=== PATIENT | male | born 1970 | race Hispanic/Latino ===

== ENCOUNTER 2023-03-14 16:32 | Emergency (ER) | payer BC ==
--- OUTSIDE RECORDS SUMMARY | 2023-03-14 16:38 | XMS REPORT | Continuity of Care Document ---
Author Name Unknown Address [address] [facility] [address] [place] [address] [facility] thconnect Address [address] [facility] [place]. [address] [place] [address] Care Team Providers Care Life Skills Instructor Name Role Phone PCP, PATIENT DOES NOT HAVE A Primary Care Physic tiarra Unavailable PANCHO POTTER Attending Clinician Unavailable Provider, [facility] Attending Clinician Unavailable Ariana Oconnell MD Attending Clinician [phone] Anastasiia Benton Attending Clinician [phone] Doctor Unassigned, Elton Attending Clinician U navailable Payers Payer Name Policy Type Policy Number Effective Date Expirati on Date Source [facility] PPO/POS [id number] 2016 00:00:00 Problems Condition Name Condition Details Condition Category Status Onset Date Resolution Date Last Treatment Date Treating Clinician Comments Source No known active problems No known active problems Disease [facility] Allergies, Adverse Reactions, Alerts Allergy Name Allergy Type Status Severity Reaction(s) Onset Date Inactive Date Treating Clinician Comments Source Penicill ins Propensi ty to adverse reaction s Active Unknown - See comments 2020-04 0-05 00:00: 00 [facility] PENICILL INS Drug Class Active Unknown-Cmnt 2020-04 0-05 00:00: 00 [facility] NO KNOWN ALLERGIE S Drug Class Active [facility] Social History Social Habit Start Date Stop Date Quantity Comments Source History SDOH Alcohol Frequency [facility] History SDOH Alcohol Std Drinks [facility] History SDOH Alcohol Binge [facility] Exposure to SARS-CoV-2 (event) Not sure [facility] Alcohol intake 2021-01-06 00:00:00 2021-01-06 00:00:00 Current drinker of alcohol (finding) [facility] Tobacco use and exposure 2016-08-10 00:00:00 2016-08-10 00:00:00 Never used [facility] Alcohol Comment 2016-08-10 00:00:00 2016-08-10 00:00:00 occasional [facility] Sex Ass[birth year] At 1970 00:00:00 1970 00:00:00 [facility] Smoking Status Start Date Stop Date Source Never smoker [facility] Medications Ordered Medication Name Filled Medication Name Start Date Stop Date Current Medication? Ordering Clinician Indication Dosage Frequency Signature (SIG) Comments Components Source codeine-gua ifenesin 10-100 mg/5 mL oral solution 2020-04 00:00: 00 01-16 04:59 :00 No 10mL Take 10 mL by mouth every 6 (six) hours as needed for Cough for up to 7 days. Indication s: cough [facility] canaglifloz in-metformi n (INVOKAMET XR) 150-1,000 mg TBph 2020-04 09:04: 52 Yes Take by mouth 2 (two) times daily. [facility] lisinopril 2.5 mg tablet 2020-04 09:04: 52 Yes 2.5mg Take 2.5 mg by mouth daily. [facility] canaglifloz in-metformi n (INVOKAMET XR) 150-1,000 mg TBph 2020-04 0 09:04: 52 Yes Take by mouth 2 (two) times daily. [facility] lisinopril 2.5 mg tablet 2020-04 09:04: 52 Yes 2.5mg Take 2.5 mg by mouth daily. [facility] cetirizine (ZYRTEC) 10 mg tablet 2020-04 00:00: 00 Yes [id number] 10mg Take 1 tablet by mouth daily. [facility] fluticasone propionate 50 mcg/actuati on nasal spray 2020-04 0 00:00: 00 Yes [id number] 1{spray } Use 1 [place] in each nostril daily. [facility] azelastine 137 mcg (0.1 %) nasal spray 2020-04 0 00:00: 00 Yes [id number] 1{spray } Use 1 [place] in each nostril 2 (two) times daily. Use in each nostril as directed [facility] benzonatate 100 mg capsule 2020-04 0 00:00: 00 Yes [id number] 200mg Take 2 capsules by mouth 2 (two) times daily as needed for Cough. [facility] cetirizine (ZYRTEC) 10 mg tablet 2020-04 0 00:00: 00 Yes [id number] 10mg Take 1 tablet by mouth daily. [facility] fluticasone propionate 50 mcg/actuati on nasal spray 2020-04 0 00:00: 00 Yes [id number] 1{spray } Use 1 [place] in each nostril daily. [facility] azelastine 137 mcg (0.1 %) nasal spray 2020-04 0 00:00: 00 Yes [id number] 1{spray } Use 1 [place] in each nostril 2 (two) times daily. Use in each nostril as directed [facility] benzonatate 100 mg capsule 2020-04 0 00:00: 00 Yes [id number] 200mg Take 2 capsules by mouth 2 (two) times daily as needed for Cough. [facility] VASCEPA 1 gram capsule 12-25 00:00: 00 Yes [facility] VASCEPA 1 gram capsule 12-25 00:00: 00 Yes [facility] VICTOZA 3-VLADIMIR 0.6 mg/0.1 mL (18 mg/3 mL) injection 12-16 00:00: 00 Yes [facility] VICTOZA 3-VLADIMIR 0.6 mg/0.1 mL (18 mg/3 mL) injection 12-16 00:00: 00 Yes [facility] atorvastati n 10 mg tablet 12-15 00:00: 00 Yes [facility] atorvastati n 10 mg tablet 12-15 00:00: 00 Yes [facility] canaglifloz in-metformi n (INVOKAMET XR) 150-1,000 mg TBph 09-01 18:25: 05 Yes Take by mouth 2 (two) times daily. [facility] lisinopril 2.5 mg tablet 09-01 18:25: 05 Yes 2.5mg Take 2.5 mg by mouth daily. [facility] GEMFIBROZIL ORAL 09-01 18:25: 05 Yes Take by mouth 2 (two) times daily. [facility] canaglifloz in-metformi n (INVOKAMET XR) 150-1,000 mg TBph 09-01 18:25: 05 Yes Take by mouth 2 (two) times daily. [facility] lisinopril 2.5 mg tablet 09-01 18:25: 05 Yes 2.5mg Take 2.5 mg by mouth daily. [facility] GEMFIBROZIL ORAL 09-01 18:25: 05 Yes Take by mouth 2 (two) times daily. [facility] GEMFIBROZIL ORAL 09-01 18:25: 05 Yes Take by mouth 2 (two) times daily. [facility] GEMFIBROZIL ORAL 09-01 18:25: 05 Yes Take by mouth 2 (two) times daily. [facility] Insulin Detemir (LEVEMIR FLEXTOUCH) 100 unit/mL (3 mL) injection 09-01 00:00: 00 Yes [id number] 40U inject 40 Units under the skin daily. [facility] Insulin Detemir (LEVEMIR FLEXTOUCH) 100 unit/mL (3 mL) injection 09-01 00:00: 00 Yes [id number] 40U inject 40 Units under the skin daily. [facility] Insulin Detemir (LEVEMIR FLEXTOUCH) 100 unit/mL (3 mL) injection 09-01 00:00: 00 Yes [id number] 40U inject 40 Units under the skin daily. [facility] it[facility] Insulin Detemir (LEVEMIR FLEXTOUCH) 100 unit/mL (3 mL) injection 09-01 00:00: 00 Yes [id number] 40U inject 40 Units under the skin daily. [facility] it[facility] GUAIFENESIN /PSEUDOEPHE DRNE HCL (MUCINEX D ORAL) 2016-04 19:15: 46 Yes Take by mouth. [facility] GUAIFENESIN /PSEUDOEPHE DRNE HCL (MUCINEX D ORAL) 2016-04 19:15: 46 Yes Take by mouth. [facility] it[facility] GUAIFENESIN /PSEUDOEPHE DRNE HCL (MUCINEX D ORAL) 2016-04 19:15: 46 Yes Take by mouth. [facility] GUAIFENESIN /PSEUDOEPHE DRNE HCL (MUCINEX D ORAL) 2016-04 19:15: 46 Yes Take by mouth. [facility] BYDUREON 2 mg/0.65 mL injection 2016-04 00:00: 00 Yes [facility] it[facility] BYDUREON 2 mg/0.65 mL injection 2016-04 00:00: 00 Yes [facility] it[facility] BYDUREON 2 mg/0.65 mL injection 2016-04 00:00: 00 Yes [facility] BYDUREON 2 mg/0.65 mL injection 2016-04 00:00: 00 Yes [facility] it[facility] LEVEMIR FLEXTOUCH 100 unit/mL (3 mL) injection 2016-04 00:00: 00 Yes [facility] LEVEMIR FLEXTOUCH 100 unit/mL (3 mL) injection 2016-04 00:00: 00 Yes [facility] it[facility] LEVEMIR FLEXTOUCH 100 unit/mL (3 mL) injection 2016-04 00:00: 00 Yes [facility] [address] LEVEMIR FLEXTOUCH 100 unit/mL (3 mL) injection 2016-04 00:00: 00 Yes [facility] Vital Signs Vital Name Observation Time Observation Value Comments S adrianne Systolic blood pressure 2021-01-06 14:07:00 142 mm[Hg] [facility] Diastolic blood pressure 2021-01-06 14:07:00 85 mm[Hg] [facility] Heart rate 2021-01-06 14:02:00 94 /min [facility] Body temperature 2021-01-06 14:02:00 36.72 [facility] Respiratory rate 2021-01-06 14:02:00 16 /min [facility] Body height 2021-01-06 14:02:00 165.1 cm [facility] Body weight 2021-01-06 14:02:00 121.745 kg [facility] BMI 2021-01-06 14:02:00 44.66 kg/m2 [facility] Oxygen saturation in Arterial blood by Pulse oximetry 2021-01-06 14:02:00 96 /min [facility] Encounters Start Date/Time End Date/Time Encounter Type Admission Type Attending Clinicians Care Facility Care Department Encounter ID Source 2021-01-08 00:00:00 2021-01-08 00:00:00 [facility] [id number] [facility] 2021-01-06 08:57:57 2021-01-06 09:32:24 Urgent Care Ariana Oconnell Cathy [facility] [id number] [facility] 2021-01-06 09:00:00 2021-01-06 09:00:00 Outpatient R [facility] [id number] [facility] 2021-01-06 00:00:00 2021-01-06 00:00:00 Letter (Out) Doctor Unassigned, Elton [facility] [id number] [facility] 2021-01-06 00:00:00 2021-01-06 00:00:00 Letter (Out) Doctor Unassigned, Elton [facility] [id number] [facility]
[2023-03-14 17:00] LABS: Absolute Lymphocytes (CBC) 1.9 K/uL (0.7-4.9); Hematocrit 42.8 % (39.6-49.0); Lymphocytes % 20.9 % (15.3-44.8); MCV 85.8 fL (80-100); MPV 9.9 fL (7.6-11.3); Platelets 164 thou/uL (152-406); RBC Red Blood Cell Count 4.99 M/uL (4.33-5.43)
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
[2023-03-14] MEDS ORDERED: NA CHLORIDE 0.9% 100 ML ONE (17:35)
[2023-03-14] MEDS ORDERED: CEFAZOLIN SODIUM 1 GM/VIAL ONE (17:35)
[2023-03-14 17:36] LABS: Protime INR 1.05
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
--- NOTE | 2023-03-14 18:25 | RAD REPORT ---
EXAM DESCRIPTION: Pedro Single View03/14/2023 5:09 pm CLINICAL HISTORY: Chest pain COMPARISON: none FINDINGS: The lungs appear clear of acute infiltrate. The heart is borderline enlarged IMPRESSION: No acute abnormalities displayed
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
[2023-03-14] MEDS ORDERED: MORPHINE 4 MG/ML SYR ONE (19:24)
[2023-03-14] MEDS ORDERED: ONDANSETRON 4 MG/2 ML VIAL ONE (19:24)
[2023-03-14 21:52] VITALS: BP 171/89; TEMP 97.8; O2SAT 99
== END 2023-03-14 20:57 | disposition short-term general hospital (02) ==
LOC: ER 16:32
DX: S66.323A Laceration of extensor muscle, fascia and tendon of left middle finger at wrist and hand level, initial encounter (principal); S30.1XXA Contusion of abdominal wall, initial encounter; S09.90XA Unspecified injury of head, initial encounter; E11.9 Type 2 diabetes mellitus without complications; I10 Essential (primary) hypertension
CPT/HCPCS: 85025; 80048; 36415; 85610; 85730; 70450; 72125; 71260; 74177; 71045; 73130; 96375; 96374; 99285; Q9967; J2405; J0690